=== PATIENT | female | born 1945 | race African-American/Black ===

== ENCOUNTER 2019-08-08 17:24 | Emergency (ER) | payer MEDICARE, OTHER ==
[~2019-08-08] VITALS: Ht 162.6 cm; Wt 82.7 kg
[~2019-08-08 17:24] MED LIST: BACL10TA PO; BEPO10DR OP; DIVA-78 PO; HYDR25TA PO; IBUP-2070 PO; LISI-662 PO; SIMV-260 PO
[2019-08-08] MEDS ORDERED: ATOR10TA84 PO (17:43)
[2019-08-08] MEDS ORDERED: METO25 PO (17:43)
[2019-08-08 19:20] LABS: BASOPHILS % (AUTO) 0.4 % (0.0-2.0); EOSINOPHILS % (AUTO) 1.3 % (1.0-6.0); HEMATOCRIT 38.9 % (36-46); HEMOGLOBIN 12.9 g/dL (12.0-16.0); LYMPHOCYTES # (AUTO) 2.5 K/uL (1.0-4.8); LYMPHOCYTES % (AUTO) 39.9 % (22.0-44.0); MEAN CORPUSCULAR HEMOGLOBIN 32.3 pg (26.0-34.0); MEAN CORPUSCULAR HGB CONC 33.2 G/dL (31.0-37.0); MEAN CORPUSCULAR VOLUME 97 fL (80-100); MONOCYTES # (AUTO) 0.7 K/uL (0.1-1.0); MONOCYTES % (AUTO) 10.7 % (2.0-9.0); NEUTROPHILS % (AUTO) 47.7 % (40.0-70.0); PLATELET COUNT (AUTO) 199 K/uL (150-450); RED BLOOD CELL COUNT(AUTO) 3.99 MIL/uL (4.00-5.20); RED CELL DISTRIBUTION WIDTH 14.1 % (11.5-14.5)
[2019-08-08 19:27] LABS: CALCIUM, TOTAL 9.8 mg/dL (8.8-10.5); CREATININE 1.28 mg/dL (0.60-1.30); POTASSIUM 3.3 mmol/L (3.5-5.1)
[2019-08-08] MEDS ORDERED: ACETAMINOPHEN 500 MG TABLET PO ONE (19:30)
[2019-08-08 19:35] LABS: ALBUMIN 3.6 g/dL (3.4-5.0); BILIRUBIN,TOTAL 0.4 mg/dL (0.1-1.0); TOTAL PROTEIN, SERUM 7.4 g/dL (6.4-8.2)
[2019-08-08] MEDS ORDERED: POTASSIUM CHLORIDE 20 MEQ ER TABLET PO ONE (20:00)
[2019-08-08 20:57] VITALS: BP 144/76
== END 2019-08-08 21:04 | disposition home or self-care (01) ==
LOC: EMS 17:26
DX: R51 Headache (principal); M54.12 Radiculopathy, cervical region; M25.511 Pain in right shoulder; F41.9 Anxiety disorder, unspecified; I10 Essential (primary) hypertension; E78.00 Pure hypercholesterolemia, unspecified; G89.29 Other chronic pain; F17.210 Nicotine dependence, cigarettes, uncomplicated
CPT/HCPCS: 99406

== ENCOUNTER 2022-01-06 07:34 | Emergency (ER) | payer MEDICARE, OTHER ==
[~2022-01-06] VITALS: Ht 162.6 cm; Wt 85.5 kg
[~2022-01-06 07:34] MED LIST changes: +ATOR10TA84 PO; -BACL10TA PO; -BEPO10DR OP; +DIVA-112 PO; -DIVA-78 PO; -HYDR25TA PO; -IBUP-2070 PO; -LISI-662 PO; +METO25 PO; -SIMV-260 PO
[2022-01-06] MEDS ORDERED: DIAZEPAM 2 MG TABLET PO ONE (09:00)
[2022-01-06] MEDS ORDERED: IBUPROFEN 400 MG TABLET PO ONE (09:00)
[2022-01-06] MEDS ORDERED: ACETAMINOPHEN 500 MG TABLET PO ONE (09:00)
[2022-01-06] MEDS ORDERED: DiphenhydrAMINE HCL 25 MG CAPSULE PO ONE (10:30)
[2022-01-06] MEDS ORDERED: PROCHLORPERAZINE EDISYLATE 5 MG/ML 2 ML VIAL IVP ONE (10:30)
[2022-01-06 10:50] LABS: CREATININE 1.29 mg/dL (0.60-1.30); POTASSIUM 3.3 mmol/L (3.5-5.1)
[2022-01-06 11:59] VITALS: BP 126/72
== END 2022-01-06 12:35 | disposition home or self-care (01) ==
LOC: EMS 07:40
DX: M62.838 Other muscle spasm (principal); R51.9 Headache, unspecified; I10 Essential (primary) hypertension; J45.909 Unspecified asthma, uncomplicated; Z79.899 Other long term (current) drug therapy
CPT/HCPCS: 36415; 80048; 96374; 99284; J0780